=== PATIENT | male | born 1970 | race Caucasian/White ===

== ENCOUNTER 2021-08-14 11:33 | Emergency (ER) | payer BC ==
[~2021-08-14] VITALS: Ht 177.8 cm; Wt 91.0 kg
[2021-08-14 12:14] VITALS: BP 145/94
[2021-08-14] MEDS ORDERED: GABA300C PO (12:22)
[2021-08-14] MEDS ORDERED: LIDOcaine 5% patch TP STA (12:23)
== END 2021-08-14 14:48 | disposition home or self-care (01) ==
LOC: ER 11:34
DX: S49.91XA Unspecified injury of right shoulder and upper arm, initial encounter (principal); M25.511 Pain in right shoulder; R53.1 Weakness; Z79.899 Other long term (current) drug therapy; V19.9XXA Pedal cyclist (driver) (passenger) injured in unspecified traffic accident, initial encounter; Y93.89 Activity, other specified; Y92.89 Other specified places as the place of occurrence of the external cause; Y99.8 Other external cause status
CPT/HCPCS: 73030; 99283

== ENCOUNTER 2025-02-28 22:58 | Emergency (ER) | payer BC, OTHER ==
[~2025-02-28] VITALS: Ht 177.8 cm; Wt 87.9 kg
[~2025-02-28 22:58] MED LIST: GABA300C PO
[2025-02-28 23:03] VITALS: BP 156/106; PULSE 94; RESP 15; O2SAT 96
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
[2025-03-01] MEDS ORDERED: SULF1TAB49 PO (00:25)
[2025-03-01] MEDS: sulfamethoxazole/trimethoprim DS (800/160mg) tablet PO STA (00:33)
[2025-03-01 00:39] VITALS: TEMP 97.6
== END 2025-03-01 00:41 | disposition home or self-care (01) ==
LOC: ER 22:59
DX: S01.01XA Laceration without foreign body of scalp, initial encounter (principal); Z79.899 Other long term (current) drug therapy; W22.8XXA Striking against or struck by other objects, initial encounter; Y93.89 Activity, other specified; Y92.89 Other specified places as the place of occurrence of the external cause; Y99.8 Other external cause status
CPT/HCPCS: 12002; 99283